=== PATIENT | male | born 1995 | race African-American/Black ===

== ENCOUNTER 2019-04-24 09:13 | Emergency (ER) | payer MEDICAID ==
[~2019-04-24] VITALS: Ht 190.5 cm; Wt 100.0 kg
[~2019-04-24 09:13] MED LIST: NAPROSYN500 MG PO; NO MEDS
[2019-04-24] MEDS ORDERED: CLARITIN10 M1 PO (10:05)
[2019-04-24] MEDS ORDERED: AMOXICILLIN500 MG PO (10:05)
[2019-04-24 10:15] VITALS: BP 140/76
== END 2019-04-24 10:15 | disposition home or self-care (01) ==
LOC: ED 09:13
DX: J03.90 Acute tonsillitis, unspecified (principal)

== ENCOUNTER 2024-10-28 10:46 | Emergency (ER) | payer MEDICAID ==
[~2024-10-28] VITALS: Ht 190.5 cm; Wt 132.0 kg
[~2024-10-28 10:46] MED LIST changes: +AMOXICILLIN500 MG PO; +CLARITIN10 M1 PO
[2024-10-28 11:01] VITALS: BP 121/72
[2024-10-28 11:16] VITALS: BP 111/66
[2024-10-28 11:31] VITALS: BP 116/88
[2024-10-28 11:45] VITALS: BP 124/74
[2024-10-28] MEDS ORDERED: MAG CITRAT1 PO (11:59)
[2024-10-28] MEDS ORDERED: FLEET ENEMA RE (11:59)
[2024-10-28 12:00] VITALS: BP 120/69
[2024-10-28 12:03] VITALS: BP 120/69
== END 2024-10-28 12:07 | disposition home or self-care (01) ==
LOC: ED 10:46
DX: K59.00 Constipation, unspecified (principal)